=== PATIENT | male | born 1985 | race Caucasian/White ===

== ENCOUNTER 2016-04-11 13:12 | Emergency (ER) | payer OTHER ==
[~2016-04-11] VITALS: Ht 193 cm; Wt 120.6 kg
[~2016-04-11 13:12] MED LIST: ALBUAER19 INH; DICY10CA55 PO; LVMIPUC SC; METFTAB PO; NRN100 PO; TRC145 PO
[2016-04-11 13:18] VITALS: TEMP 37.1; Ht 193 cm; Wt 120.6 kg
[2016-04-11 14:15] VITALS: BP 141/96; PULSE 90; O2SAT 96
[2016-04-11] MEDS ORDERED: CLIN300C2 PO (14:17)
[2016-04-11] MEDS ORDERED: HYDR-5688 PO (14:18)
--- NOTE | 2016-04-11 14:19 | EMERGENCY ROOM VISIT NOTE ---
ED Visit Note First contact with patient: 13:33 CHIEF COMPLAINT: Toothache HISTORY OF PRESENT ILLNESS: This 30-year-old male patient presented to the emergency department ambulatory complaining of pain in the right side of his jaw for the past 4-5 days. The patient reports that he has had a constant, sharp pain in his right lower jaw for the past 4-5 days. The pain does not radiate anywhere. He does see a dentist, but has not seen one for several months. He has been taking Tylenol for the pain without relief. He rates the discomfort a 7/10. The pain is worse with talking or chewing. He denies any facial swelling, fever or drainage from the mouth. REVIEW OF SYSTEMS: A 6 system review of systems was completed with positives and pertinent negatives listed in the HPI. ALLERGIES: Penicillins MEDICATIONS: See med list PMH: Diabetes, asthma SOCIAL HISTORY: The patient lives locally with his significant other. He is a smoker. Denies alcohol use. PHYSICAL EXAM: Vitals are noted on the nurse's note and reviewed by myself. Vital signs stable. Temperature 37.1C orally. GENERAL: This is a 30-year-old male, in no acute distress, nondiaphoretic, well-developed well-nourished. Mouth: There is tenderness to palpation over the right lower jaw. The right lower back molar tooth is very carious. The gums are minimally swollen surrounding the tooth. The remainder of the pharynx and tonsils are without erythema, edema, or exudate. The airway is patent. There is no facial swelling , cervical or submandibular lymphadenopathy. The patient appears uncomfortable and in pain. The patient has overall poor dental hygiene. EARS: External auditory canals clear, tympanic membranes pearly miller without erythema or effusion bilaterally. ED COURSE: The patient was evaluated as above. He presents complaining of right lower jaw pain. The patient does have a dental carry an area which may be the cause of his pain. He will be placed on a course of clindamycin in case this is a dental source. The patient was given a short course of pain medication and instructed to follow-up closely with his primary care provider and dentist. He verbalized understanding of this assessment and treatment plan was discharged home in good condition. The [place] prescription drug monitoring program was queried and no red flags were identified. DIAGNOSIS: Odontalgia Problem List Medical Problems: (1) Bipolar 1 disorder Status: Chronic (2) DM2 (diabetes mellitus, type 2) Status: Chronic (3) GERD (gastroesophageal reflux disease) Status: Chronic (4) HLD (hyperlipidemia) Status: Chronic (5) HTN (hypertension) Status: Chronic (6) IBS (irritable bowel syndrome) Status: Chronic (7) PTSD (post-traumatic stress disorder) Status: Chronic Surgical Problems: (1) H/O colonoscopy Status: Chronic (2) H/O esophagogastroduodenoscopy Status: Chronic Current/Historical Medications Scheduled Bupropion Hcl (Wellbutrin Xl), 1 TAB PO DAILY Clindamycin Hcl (Cleocin), 300 MG PO QID Fenofibrate (Fenofibrate), 145 MG PO QAM Gabapentin (Neurontin), 300 MG PO HS Glipizide (Glucotrol), 10 MG PO DAILY Insulin Glargine (Lantus), 25 UNITS SC QAM Metformin Ext Rel (Glucophage Ext Rel), 1 TAB PO UD Omeprazole (Prilosec), 40 MG PO DAILY Quetiapine Fumarate (Seroquel), 1 TAB PO HS Scheduled PRN Albuterol Inhaler (Ventolin Inhaler), 2 PUFFS INH QID PRN for SOB/Wheezing Clonazepam (Klonopin), 1 TAB PO DAILY PRN for Anxiety Hydrocodone/Acetaminophen 5MG/325MG ([place] 5MG/325MG), 1-2 TABLET PO Q4H PRN for Pain Allergies Coded Allergies: Penicillins (Verified Allergy, Unknown, Rash, 04/11/16) Vital Signs Date Time Temp Pulse Resp B/P Pulse Ox O2 Delivery O2 Flow Rate FiO2 04/11/16 14:15 90 18 141/96 96 Room Air 04/11/16 13:18 37.1 86 18 146/89 98 Room Air Departure Information Impression Primary Impression: Pain in lower jaw Dispostion Home / Self-Care Condition GOOD Prescriptions Hydrocodone/Acetaminophen 5MG/325MG ([place] 5MG/325MG) Tab 1-2 TABLET PO Q4H Y for Pain, #15 TAB For Initial Treatment Prov: Cande Hahn PA-C 04/11/16 Clindamycin Hcl (CLEOCIN) 300 Mg Cap 300 MG PO QID for 7 Days, #28 CAP Prov: Cande Hahn PA-C 04/11/16 Referrals Nikolai Ralph M.D.([facility]) (PCP) Patient Instructions A Signature Page, My [facility] Additional Instructions You have been treated in the Emergency Department for Dental/jaw Pain. You have been prescribed [place] to be used for pain control. This is a narcotic medication. You cannot drive or consume alcohol while on this medicine. This medicine should only be used for pain that cannot be controlled with over-the- counter pain medicines. You were prescribed Clindamycin to be taken as prescribed. This is an antibiotic. All antibiotics have the potential to cause diarrhea. Stop this medication and contact a medical provider if you were to develop any significant adverse side effects including: wheezing, shortness of breath, passing out, vomiting, or a diffuse rash. Always take antibiotics as directed and COMPLETE the ENTIRE course regardless of the improvement of your symptoms. For pain control, you can use the following [id number] medicines (if >12 yo): - Regular strength (325mg/tab) Tylenol (acetaminophen) 2 tabs every 4-6 hours as needed. Do not exceed 12 tablets in a 24 hour period. Avoid taking more than 4 grams (4000 mg) of Tylenol per day. This includes any other sources of acetaminophen you may take on a regular basis. - Regular strength (200 mg/tab) Advil (ibuprofen) 1-2 tabs every 4-6 hours as needed. Do not exceed a dose of 3200 mg per day. Refrain from smoking cigarettes or using chewing tobacco until you have been evaluated by your dentist. Keeping beverages lukewarm and consuming soft foods can decrease your pain. Warm compresses over the affected area may offer some relief. You MUST seek evaluation of your dental pain by a dentist following your visit to the Emergency Department. The Emergency Department is not capable of treating dental issues long-term. You should call your dentist as soon as possible to make an appointment for evaluation of your dental pain. Return to the emergency department if you develop the following symptoms despite treatment course outlined above: fever, intractable pain, increased redness, swelling, or purulent discharge.
[2016-09-03] MEDS ORDERED: INSDGI SQ (13:33)
[2016-09-03] MEDS ORDERED: GABA-113 PO (13:33)
[2016-09-03] MEDS ORDERED: GLIP10TA9 PO (15:45)
[2016-09-03] MEDS ORDERED: SRQ/200 PO (16:18)
[2016-09-03] MEDS ORDERED: CLON1TAB3 PO (16:18)
[2016-09-03] MEDS ORDERED: OMEP20CA9 PO (16:18)
[2016-09-03] MEDS ORDERED: BUPRTAB51 PO (16:18)
== END 2016-04-11 14:29 | disposition home or self-care (01) ==
LOC: C.EDB 13:17 → C.EDD 14:29
DX: R68.84 Jaw pain (principal); J45.909 Unspecified asthma, uncomplicated; E11.9 Type 2 diabetes mellitus without complications; F17.200 Nicotine dependence, unspecified, uncomplicated; K02.9 Dental caries, unspecified; E78.5 Hyperlipidemia, unspecified; K58.9 Irritable bowel syndrome, unspecified; F31.9 Bipolar disorder, unspecified; I10 Essential (primary) hypertension; Z79.4 Long term (current) use of insulin; Z79.84 Long term (current) use of oral hypoglycemic drugs; Z79.899 Other long term (current) drug therapy

== ENCOUNTER 2016-09-03 22:09 | Emergency (ER) | payer OTHER ==
[~2016-09-03] VITALS: Ht 193 cm; Wt 118.3 kg
[~2016-09-03 22:09] MED LIST changes: +BUPRTAB51 PO; +CLON1TAB3 PO; -DICY10CA55 PO; +GABA-113 PO; +GLIP10TA9 PO; +HYDR-5688 PO; +INSDGI SQ; -LVMIPUC SC; -NRN100 PO; +OMEP20CA9 PO; +SRQ/200 PO
[2016-09-03 22:10] VITALS: TEMP 36.7; Ht 193 cm; Wt 118.3 kg
[2016-09-03] MEDS ORDERED: TRAMADOL HCL 50 MG HOME PACK PO ONE (22:45)
--- NOTE | 2016-09-03 23:03 | EMERGENCY ROOM VISIT NOTE ---
History First contact with patient: 22:18 Chief Complaint: BACK PAIN Stated Complaint: LF SHOULDER & LOWER BACK PAIN History of Present Illness The patient is a 31 year old male who presents to the Emergency Room with complaints of left shoulder and neck pain. The patient states that he woke this morning with pain radiating down his left shoulder into the upper back. He denies any recent injury or heavy lifting. He has been taking Tylenol and applying icy hot without relief. He rates the discomfort a 7/10 and states it is worse with movement. He does report a history of a bulging disc in the neck and states this feels similar. At that time, the patient was treated with a steroid which worked very well. He denies any numbness or weakness in the arm. He denies any fevers or headaches. Review of Systems A complete 6 point review of systems was reviewed with the patient with pertinent positives and negatives as per history of present illness. All else were negative. Past Medical/Surgical History Medical Problems: (1) JOEY (acute kidney injury) (2) Bipolar 1 disorder (3) DM2 (diabetes mellitus, type 2) (4) GERD (gastroesophageal reflux disease) (5) HLD (hyperlipidemia) (6) HTN (hypertension) (7) Hyperglycemia (8) IBS (irritable bowel syndrome) (9) PTSD (post-traumatic stress disorder) Surgical Problems: (1) H/O colonoscopy (2) H/O esophagogastroduodenoscopy (3) History of upper and lower endoscopy Family History FH: cancer FH: diabetes mellitus FH: heart disease FH: hypertension FH: lung disease Social History Smoking Status: Current Every Day Smoker Alcohol Use: none Marital Status: single Housing Status: lives with family, lives with significant other Occupation Status: unemployed Current/Historical Medications Scheduled Bupropion Hcl (Wellbutrin Xl), 1 TAB PO DAILY Fenofibrate (Tricor ), 145 MG PO DAILY Gabapentin (Neurontin), 300 MG PO HS Glipizide (Glucotrol), 10 MG PO DAILY Insulin Glargine (Lantus), 25 UNITS SC QAM Menthol-Camphor (Liniments) (Icy Hot Advanced Relief 16-11 %), 1 APPLN TOP PRN Metformin Hcl (Glucophage Ext Rel), 1,000 MG PO DAILY Methylprednisolone (Medrol Dosepak), 0 PO DAILY Omeprazole (Prilosec), 40 MG PO DAILY Quetiapine Fumarate (Seroquel), 1 TAB PO HS Tramadol Hcl (Ultram), 50 MG PO Q4H Scheduled PRN Albuterol Hfa (Ventolin Hfa), 2 PUFFS INH QID PRN for SOB/Wheezing Clonazepam (Klonopin), 1 TAB PO DAILY PRN for Anxiety Allergies Coded Allergies: Penicillins (Verified Allergy, Unknown, Rash, 09/03/16) Physical Exam Vital Signs Date Time Temp Pulse Resp B/P Pulse Ox O2 Delivery O2 Flow Rate FiO2 09/03/16 23:20 100 16 147/90 95 Room Air 09/03/16 22:10 36.7 115 20 156/93 97 Room Air Physical Exam VITALS: Vitals are noted on the nurse's note and reviewed by myself. Vital signs stable. GENERAL: This is a 31-year-old male, in no acute distress, nondiaphoretic, well- developed well-nourished. SKIN: The skin was without rashes. HEAD: Normocephalic atraumatic. EARS: External auditory canals clear, tympanic membranes pearly miller without erythema or effusion bilaterally. EYES: Pupils equal round and reactive to light and accommodation. Conjunctivae without injection, sclerae without icterus. Extraocular movements intact. MOUTH: Mucous membranes moist. Tonsils are not enlarged. Pharynx without erythema or exudate. NECK: Supple without nuchal rigidity. No lymphadenopathy. HEART: Regular rate and rhythm without murmurs gallops or rubs. LUNGS: Clear to auscultation bilaterally without wheezes, rales or rhonchi. MUSCULOSKELETAL: There is tenderness of the left paraspinous muscles and left trapezius muscles. Full range of motion of the left upper extremity and neck. Sales Applications Engineer strength 5/5 bilaterally in upper extremity spray strength 5/5 throughout. NEURO: Patient was alert and oriented to person place and time. Normal sensation to light and sharp touch. Medical Decision & Procedures Medications Administered Medications (Trade) Dose Ordered Sig/Tho Route Start Time Stop Time Status Last Admin Dose Admin Tramadol HCl (Ultram Home Pack) 1 homepack UD ONCE PO 09/03/16 22:45 09/03/16 22:46 DC 09/03/16 23:12 1 HOMEPACK Medical Decision The patient was evaluated as above. He has been seen here previously for cervical radiculopathy and states that the steroids he was treated with worked very well. His symptoms today are consistent with left-sided cervical radiculopathy. There is no numbness or weakness. I do not feel that imaging is necessary at this time. The patient will be placed on a short course of steroids and tramadol for pain. He was instructed to return to his primary care provider for recheck or come here sooner for any worsening symptoms. He verbalized understanding of my assessment and treatment plan and was discharged home in good condition. [place] Drug Monitoring Program Search Results: patient reviewed within database, no issues identified Impression Primary Impression: Cervical radiculopathy Departure Information Dispostion Home / Self-Care Condition GOOD Prescriptions Methylprednisolone (MEDROL DOSEPAK) 4 Mg Se 0 PO DAILY, #1 PKT Prov: Cande Hahn PA-C 09/03/16 Tramadol Hcl (ULTRAM) 50 Mg Tab 50 MG PO Q4H for Pain, #15 TAB For Initial Treatment Prov: Cande Hahn PA-C 09/03/16 Referrals Nikolai Ralph M.D. ([facility]) (PCP) Patient Instructions [facility] Additional Instructions You have been prescribed a Medrol Dosepak. This is a steroid which will help decrease your inflammation. Take the medicine as prescribed. Take the ENTIRE 6 day course of the steroids. Tramadol as needed for pain. This medication may make you drowsy. You should not drive or drink alcohol taking this medication. For pain control, you can use the following [id number] medicines (if >12 yo): - Regular strength (325mg/tab) Tylenol (acetaminophen) 2 tabs every 4-6 hours as needed. Do not exceed 12 tablets in a 24 hour period. Avoid taking more than 4 grams (4000 mg) of Tylenol per day. This includes any other sources of acetaminophen you may take on a regular basis. - Regular strength (200 mg/tab) Advil (ibuprofen) 1-2 tabs every 4-6 hours as needed. Do not exceed a dose of 3200 mg per day. Apply a heating pad to the area of pain. Follow-up with your primary care provider this week. Return to the emergency department with any worsening or new/concerning symptoms.
[2016-09-03] MEDS ORDERED: METF1TAB53 PO (23:04)
[2016-09-03] MEDS ORDERED: VNTHFA/IN INH (23:04)
[2016-09-03] MEDS ORDERED: MENT1CRE TOP (23:04)
[2016-09-03] MEDS ORDERED: FENO145T26 PO (23:04)
[2016-09-03] MEDS ORDERED: METH4PAK PO (23:08)
[2016-09-03] MEDS ORDERED: TRAM-453 PO (23:08)
[2016-09-03 23:20] VITALS: BP 147/90; PULSE 100; O2SAT 95
== END 2016-09-03 23:23 | disposition home or self-care (01) ==
LOC: C.EDB 22:10 → C.EDC 23:23
DX: M54.12 Radiculopathy, cervical region (principal); E11.9 Type 2 diabetes mellitus without complications; E78.5 Hyperlipidemia, unspecified; F31.9 Bipolar disorder, unspecified; I10 Essential (primary) hypertension; K21.9 Gastro-esophageal reflux disease without esophagitis; Z79.84 Long term (current) use of oral hypoglycemic drugs; Z79.4 Long term (current) use of insulin; Z79.899 Other long term (current) drug therapy

== ENCOUNTER 2017-03-05 18:28 | Emergency (ER) | payer BC, OTHER ==
[~2017-03-05] VITALS: Ht 193 cm; Wt 114.9 kg
[~2017-03-05 18:28] MED LIST changes: -ALBUAER19 INH; +FENO145T26 PO; -HYDR-5688 PO; +MENT1CRE TOP; +METF1TAB53 PO; -METFTAB PO; -TRC145 PO; +VNTHFA/IN INH
[2017-03-05 18:50] VITALS: TEMP 36.8; Ht 193 cm; Wt 114.9 kg
[2017-03-05 19:51] LABS: BASO % 0.5 %; BASO ABS # 0.06 K/uL (0-0.2); COMPLETE YES; EOS % 2.6 %; HEMATOCRIT 41.6 % (42-52); IG% 0.3 %; LYMPH % 36.6 %; LYMPH ABS # 4.24 K/uL (1.2-3.4); MEAN CELL VOLUME 88.5 fL (80-100); MEAN CORPUSCULAR HEMOGLOBIN 31.9 pg (25-34); MEAN CORPUSCULAR HGB CONC 36.1 g/dl (32-36); MEAN PLATELET VOLUME 8.6 fL (7.4-10.4); MONO % 8.2 %; NEUT % 51.8 %; PLATELET COUNT 318 K/uL (130-400); WHITE BLOOD COUNT 11.58 K/uL (4.8-10.8)
[2017-03-05 19:55] LABS: URINE APPEARANCE CLEAR (CLEAR); URINE BILIRUBIN NEG (NEG); URINE COLOR YELLOW; URINE NITRITE NEG (NEG); URINE SPECIFIC GRAVITY 1.038 (1.000-1.030); UROBILINOGEN NEG (NEG); ZZUR CULT IF INDIC CLEAN CATCH NO
[2017-03-05 19:58] LABS: MANUAL MICROSCOPIC REQUIRED? NO; REVIEW REQ? NO
[2017-03-05] MEDS ORDERED: SODIUM CHLORIDE 0.9% 1000ML 1,000 ML IV STA (20:19)
[2017-03-05 20:43] LABS: ALKALINE PHOSPHATASE 118 U/L (45-117); ALT/SGPT 28 U/L (12-78); BLOOD UREA NITROGEN 12 mg/dl (7-18); BUN/CREATININE RATIO 12.7 (10-20); CARBON DIOXIDE 23 mmol/L (21-32); CHLORIDE 101 mmol/L (98-107); CREATININE 0.98 mg/dl (0.60-1.40); GLUCOSE 268 mg/dl (70-99); SODIUM 134 mmol/L (136-145)
--- NOTE | 2017-03-05 21:10 | DIAGNOSTIC IMAGING REPORT ---
ABD/PELVIS WITHOUT FOR STONE CLINICAL HISTORY: 31 years-old Male presenting with bilateral flank pain. TECHNIQUE: Multidetector CT of the abdomen and pelvis was performed without the use of intravenous contrast. IV contrast: None. A dose lowering technique was used consistent with the principles of ALARA (as low as reasonably achievable). COMPARISON: None. CT DOSE (mGy.cm): The estimated cumulative dose is 1771.73 mGy.cm. FINDINGS: Vendor Analyst topogram: Unremarkable. Lung bases: Extensive dependent changes likely atelectasis. Normal heart size. No pericardial or pleural effusion. Liver: Normal morphology. Density consistent with hepatic steatosis. Fatty sparing noted in the gallbladder fossa. Biliary: No gross biliary ductal dilatation allowing for noncontrast technique. Normal gallbladder. Pancreas: Normal noncontrast appearance. Spleen: Normal noncontrast appearance. Adrenal glands: Normal noncontrast appearance. Kidneys and ureters: Punctate nonobstructing calculus noted in the interpolar region of the left kidney (series 3 image 202). Nonobstructing punctate calculus in the interpolar region of the right kidney (series 3 image 200). Kidneys otherwise normal in appearance. No hydronephrosis. Normal ureters. Bladder: Normal noncontrast appearance. Pelvic organs: Prostate and seminal vesicles normal. Bowel: Normal appendix. No bowel obstruction. Nonspecific intramural fat deposition in the terminal ileum. No perienteric inflammatory change. Peritoneal cavity: No free fluid or intraperitoneal gas. Lymph nodes: No gross lymphadenopathy allowing for noncontrast technique. Few prominent scattered mesenteric lymph nodes, likely reactive. Vasculature: Normal noncontrast appearance. Left pelvic phlebolith noted. Abdominal wall: Small fat-containing umbilical hernia. Musculoskeletal: Normal. IMPRESSION: 1. Bilateral nephrolithiasis. No hydronephrosis. 2. Nonspecific intramural fat deposition within the terminal ileum. The skin be seen in the setting of chronic inflammation among other etiologies. 3. Hepatic steatosis. Correlate with liver function tests to exclude steatohepatitis as a cause for abdominal pain. Electronically signed by: Saran Rouse M.D. 03/05/2017 9:09 PM Dictated Date/Time: 03/05/2017 8:59 PM
[2017-03-05 21:41] LABS: AST/SGOT 14 U/L (15-37)
[2017-03-05] MEDS ORDERED: CIPROFLOXACIN 500MG HOME PACK PO ONE (22:15)
[2017-03-05] MEDS ORDERED: CIPR-255 PO (22:15)
[2017-03-05 22:30] VITALS: BP 134/72; PULSE 88; O2SAT 98
--- NOTE | 2017-03-06 01:44 | EMERGENCY ROOM VISIT NOTE ---
History Report prepared by Maggie: Georgia Roberto Under the Supervision of: Dr. Huey Art M.D. First contact with patient: 19:09 Chief Complaint: FLANK PAIN Stated Complaint: KIDNEY PAIN History of Present Illness The patient is a 31 year old male who presents to the Emergency Room with complaints of constant flank pain beginning a week ago. The patient reports the pain is on both sides of his back. He rates his pain as a 7/10. He notes never having pain like this before. The patient reports that last year he had an episode where his blood sugar level was 798 which caused him to have kidney problems. He reports his sugar was so high because he did not know he was diabetic. He states his sugar levels have been regulated since. He notes urinating more frequently and a darkened color to his urine. He also notes dysuria. The patient has a history of asthma and reports using his inhaler more recently. The patient has family history of kidney stones. Pt denies LOC, headache, fevers, chills, diaphoresis, visual changes, neck pain, chest pain, breathing difficulties, nausea, vomiting, abdominal pain, melena, hematochezia, numbness, weakness, lymphadenopathy, rash, or other complaints. Source of History: patient Onset: a week ago Position: other (flank) Symptom Intensity: 7/10 Timing: constant Associated Symptoms: + urinary symptoms Review of Systems See HPI for pertinent positives and negatives. A total of ten systems were reviewed and were otherwise negative. Past Medical & Surgical Medical Problems: (1) JOEY (acute kidney injury) (2) Bipolar 1 disorder (3) DM2 (diabetes mellitus, type 2) (4) GERD (gastroesophageal reflux disease) (5) HLD (hyperlipidemia) (6) HTN (hypertension) (7) Hyperglycemia (8) IBS (irritable bowel syndrome) (9) PTSD (post-traumatic stress disorder) Surgical Problems: (1) H/O colonoscopy (2) H/O esophagogastroduodenoscopy (3) History of upper and lower endoscopy Family History FH: cancer FH: diabetes mellitus FH: heart disease FH: hypertension FH: lung disease Kidney stone Social History Smoking Status: Current Every Day Smoker Alcohol Use: none Marital Status: single Housing Status: lives with family, lives with significant other Occupation Status: unemployed Current/Historical Medications Scheduled Bupropion Hcl (Wellbutrin Xl), 300 MG PO DAILY Ciprofloxacin Hcl (Cipro), 500 MG PO BID Fenofibrate (Tricor ), 145 MG PO DAILY Gabapentin (Neurontin), 300 MG PO HS Glipizide (Glucotrol), 10 MG PO DAILY Insulin Glargine (Lantus), 25 UNITS SQ QAM Menthol-Camphor (Liniments) (Icy Hot Advanced Relief 16-11 %), 1 APPLN TOP PRN Metformin Hcl (Glucophage Ext Rel), 1,000 MG PO DAILY Omeprazole (Prilosec), 40 MG PO DAILY Quetiapine Fumarate (Seroquel), 200 MG PO HS Scheduled PRN Albuterol Hfa (Ventolin Hfa), 2 PUFFS INH QID PRN for SOB/Wheezing Clonazepam (Klonopin), 1 MG PO DAILY PRN for Anxiety Allergies Coded Allergies: Penicillins (Verified Allergy, Unknown, Rash, 09/03/16) Physical Exam Vital Signs Date Time Temp Pulse Resp B/P (MAP) Pulse Ox O2 Delivery O2 Flow Rate FiO2 03/05/17 22:30 88 16 134/72 98 03/05/17 21:46 72 16 140/72 98 Room Air 03/05/17 20:41 93 16 146/87 98 Room Air 03/05/17 18:50 36.8 111 18 152/93 99 Room Air Physical Exam GENERAL: Awake, alert, well-appearing, in no distress HENT: Normocephalic, atraumatic. Oropharynx unremarkable. EYES: Normal conjunctiva. Sclera non-icteric. NECK: Supple. No nuchal rigidity. FROM. No JVD. RESPIRATORY: Clear to auscultation. CARDIAC: Borderline tachycardic rate, normal rhythm. Extremities warm and well perfused. Pulses equal. ABDOMEN: Soft, non-distended. No tenderness to palpation. No rebound or guarding. No masses. RECTAL: Deferred. MUSCULOSKELETAL: Chest examination reveals no tenderness. The back is symmetrical on inspection without obvious abnormality. Bilateral CVA tenderness to palpation. No joint edema. LOWER EXTREMITIES: Calves are equal size bilaterally and non-tender. No edema. No discoloration. NEURO: Normal sensorium. No sensory or motor deficits noted. SKIN: No rash or jaundice noted. Medical Decision & Procedures ER Provider Diagnostic Interpretation: Radiology results as stated below per my review and radiologist interpretation: ABD/PELVIS WITHOUT FOR STONE FINDINGS: Tomato Paste Maker topogram: Unremarkable. Lung bases: Extensive dependent changes likely atelectasis. Normal heart size. No pericardial or pleural effusion. Liver: Normal morphology. Density consistent with hepatic steatosis. Fatty sparing noted in the gallbladder fossa. Biliary: No gross biliary ductal dilatation allowing for noncontrast technique. Normal gallbladder. Pancreas: Normal noncontrast appearance. Spleen: Normal noncontrast appearance. Adrenal glands: Normal noncontrast appearance. Kidneys and ureters: Punctate nonobstructing calculus noted in the interpolar region of the left kidney (series 3 image 202). Nonobstructing punctate calculus in the interpolar region of the right kidney (series 3 image 200). Kidneys otherwise normal in appearance. No hydronephrosis. Normal ureters. Bladder: Normal noncontrast appearance. Pelvic organs: Prostate and seminal vesicles normal. Bowel: Normal appendix. No bowel obstruction. Nonspecific intramural fat deposition in the terminal ileum. No perienteric inflammatory change. Peritoneal cavity: No free fluid or intraperitoneal gas. Lymph nodes: No gross lymphadenopathy allowing for noncontrast technique. Few prominent scattered mesenteric lymph nodes, likely reactive. Vasculature: Normal noncontrast appearance. Left pelvic phlebolith noted. Abdominal wall: Small fat-containing umbilical hernia. Musculoskeletal: Normal. IMPRESSION: 1. Bilateral nephrolithiasis. No hydronephrosis. 2. Nonspecific intramural fat deposition within the terminal ileum. The skin be seen in the setting of chronic inflammation among other etiologies. 3. Hepatic steatosis. Correlate with liver function tests to exclude steatohepatitis as a cause for abdominal pain. Electronically signed by: Saran Rouse M.D. Laboratory Results 03/05/17 19:41 Red Blood Count 4.70, Mean Corpuscular Volume 88.5, Mean Corpuscular Hemoglobin 31.9, Mean Corpuscular Hemoglobin Concent 36.1, Mean Platelet Volume 8.6, Neutrophils (%) (Auto) 51.8, Lymphocytes (%) (Auto) 36.6, Monocytes (%) (Auto) 8.2, Eosinophils (%) (Auto) 2.6, Basophils (%) (Auto) 0.5, Neutrophils # (Auto) 5.99, Lymphocytes # (Auto) 4.24, Monocytes # (Auto) 0.95, Eosinophils # (Auto) 0.30, Basophils # (Auto) 0.06 03/05/17 19:41 03/05/17 20:54 Test 03/05/17 19:41 03/05/17 20:54 White Blood Count 11.58 K/uL (4.8-10.8) Red Blood Count 4.70 M/uL (4.7-6.1) Hemoglobin 15.0 g/dL (14.0-18.0) Hematocrit 41.6 % (42-52) Mean Corpuscular Volume 88.5 fL (80-100) Mean Corpuscular Hemoglobin 31.9 pg (25-34) Mean Corpuscular Hemoglobin Concent 36.1 g/dl (32-36) Platelet Count 318 K/uL (130-400) Mean Platelet Volume 8.6 fL (7.4-10.4) Neutrophils (%) (Auto) 51.8 % Lymphocytes (%) (Auto) 36.6 % Monocytes (%) (Auto) 8.2 % Eosinophils (%) (Auto) 2.6 % Basophils (%) (Auto) 0.5 % Neutrophils # (Auto) 5.99 K/uL (1.4-6.5) Lymphocytes # (Auto) 4.24 K/uL (1.2-3.4) Monocytes # (Auto) 0.95 K/uL (0.11-0.59) Eosinophils # (Auto) 0.30 K/uL (0-0.5) Basophils # (Auto) 0.06 K/uL (0-0.2) RDW Standard Deviation 42.1 fL (36.4-46.3) RDW Coefficient of Variation 13.0 % (11.5-14.5) Immature Granulocyte % (Auto) 0.3 % Immature Granulocyte # (Auto) 0.04 K/uL (0.00-0.02) Urine Color YELLOW Urine Appearance CLEAR (CLEAR) Urine pH 5.0 (4.5-7.5) Urine Specific [place] 1.038 (1.000-1.030) Urine Protein NEG (NEG) Urine Glucose (UA) 3+ (NEG) Urine Ketones NEG (NEG) Urine Occult Blood NEG (NEG) Urine Nitrite NEG (NEG) Urine Bilirubin NEG (NEG) Urine Urobilinogen NEG (NEG) Urine Leukocyte Esterase NEG (NEG) Anion Gap 10.0 mmol/L (3-11) Est Creatinine Clear Calc Drug Dose 151.4 ml/min Estimated GFR () 118.6 Estimated GFR (Non- 102.3 BUN/Creatinine Ratio 12.7 (10-20) Calcium Level 9.0 mg/dl (8.5-10.1) Total Bilirubin 0.3 mg/dl (0.2-1) Alanine Aminotransferase (ALT/SGPT) 28 U/L (12-78) Alkaline Phosphatase 118 U/L (45-117) Total Protein 7.5 gm/dl (6.4-8.2) Albumin 4.0 gm/dl (3.4-5.0) Lipase 168 U/L (73-393) Direct Bilirubin mg/dl (0-0.2) Aspartate Amino Transf (AST/SGOT) 14 U/L (15-37) Chemistry Specimen Hemolysis Laboratory results reviewed by me Medications Administered Medications (Trade) Dose Ordered Sig/Tho Route Start Time Stop Time Status Last Admin Dose Admin Sodium Chloride 1,000 ml @ 999 mls/hr Q1H1M STAT IV 03/05/17 20:19 03/05/17 21:19 DC 03/05/17 20:19 999 MLS/HR Ciprofloxacin (Cipro 500MG Home Pack) 1 homepack UD ONCE PO 03/05/17 22:15 03/05/17 22:16 DC 03/05/17 22:15 1 HOMEPACK ED Course 2011: The patient was evaluated in room C3. A complete history and physical exam was performed. 2019: Ordered Sodium Chloride 1000 ml @ 999 mls/hr IV. 2203: I updated the patient on his test results he is resting comfortably. 2215: Ordered Ciprofloxacin 1 homepack PO. 2222: I reevaluated the patient. Discussed results and discharge instructions: He verbalized understanding and agreement. The patient is ready for discharge. Medical Decision Triage Nursing notes reviewed. The patient's presentation and history were concerning for flank pain and urinary symptoms. Etiologies such as renal colic, appendicitis, diverticulitis, mesenteric ischemia, aortic pathology, infections, inflammatory bowel disease, PUD, biliary pathology, UTI, as well as others were entertained. The patient was evaluated. Clinically he was doing well. He does have a slight leukocytosis. He was hydrated. Urinalysis was rather unremarkable given his symptomatology. The patient's chemistry panel was unremarkable as well. Normal renal function. CT imaging was performed and findings noted as above. The patient has bilateral nephrolithiasis. Radiology raise questions about his terminal ileum however the patient does not have any GI symptoms per se. The accommodation of the flank pain, leukocytosis, and urinary symptoms raise concerns I discussed treatment with antibiotic pending culture and follow- up. The patient was in agreement. He was given Cipro. The patient will follow -up closely with his primary physician. He will call this week. She worsens in any way he will be back. He'll monitor his sugar closely. I gave my usual and customary discussion regarding this issue. By the evaluation outlined above other emergent etiologies such as those listed in the differential, as well as others, were deemed relatively unlikely. The patient was educated about the findings as listed above. All questions were answered and the patient was pleased with the treatment. Return instructions were outlined and the patient was discharged in stable condition. The patient was referred to his PCP for follow-up for a recheck of the current condition. Medication Reconcilliation Current Medication List: was personally reviewed by me Blood Pressure Screening Patient's blood pressure: Elevated blood pressure Blood pressure disposition: Referred to PCP Impression Primary Impression: Flank pain Additional Impressions: Dysuria Hyperglycemia Scribe Attestation The scribe's documentation has been prepared under my direction and personally reviewed by me in its entirety. I confirm that the note above accurately reflects all work, treatment, procedures, and medical decision making performed by me. Departure Information Dispostion Home / Self-Care Prescriptions Ciprofloxacin Hcl (CIPRO) 500 Mg Tab 500 MG PO BID, #14 TAB Prov: Huey Art MD 03/05/17 Referrals Nikolai Ralph M.D.([facility]) (PCP) Forms HOME CARE DOCUMENTATION FORM, IMPORTANT VISIT INFORMATION Patient Instructions My [facility] Additional Instructions Ciprofloxacin 500mg: Take one pill twice daily for 7 days for your infection. All antibiotics can cause diarrhea. If this occurs and you feel worse or it does not resolve in 1-2 days follow up with your doctor or return to the Emergency Department as this could be signs of serious underlying problems. Any medication can cause an allergic reaction or complication, stop the pills immediately and return to the ER for rash, hives, breathing difficulties, tendon pain, tendon injury, or swelling. Ibuprofen(Motrin, Advil) may be used for fever or pain. Use 600mg every six hours as needed. Take with food. Avoid using more than 2400mg in a 24 hour period. Do not use 2400mg per day for more than three consecutive days without physician direction. Prolonged inappropriate use can lead to stomach upset or ulcers. This medication can be taken if you need to drive, work, or perform activities which may be dangerous when taking narcotic pain medication. (AND/OR) Acetaminophen(Tylenol) may be used for fever or pain. Use 1000mg every six hours as needed. Avoid using more than 4000mg in a 24 hour period. This medication can be taken if you need to drive, work, or perform activities which may be dangerous when taking narcotic pain medication. Rest and avoid strenuous activity until your symptoms resolve. Drink plenty of fluids. Return to the ER for worsening abdominal or back pain, vomiting, fevers, passing out, or as needed. Follow up with Dr. Ralph's office this week. Problem Qualifiers
== END 2017-03-05 22:31 | disposition home or self-care (01) ==
LOC: C.EDB 18:29 → C.EDC 22:31
DX: R10.9 Unspecified abdominal pain (principal); R30.0 Dysuria; E11.65 Type 2 diabetes mellitus with hyperglycemia; N20.0 Calculus of kidney; D72.829 Elevated white blood cell count, unspecified; J45.909 Unspecified asthma, uncomplicated; F31.9 Bipolar disorder, unspecified; K21.9 Gastro-esophageal reflux disease without esophagitis; E78.5 Hyperlipidemia, unspecified; I10 Essential (primary) hypertension; K58.9 Irritable bowel syndrome, unspecified; F17.200 Nicotine dependence, unspecified, uncomplicated; Z79.4 Long term (current) use of insulin; Z79.84 Long term (current) use of oral hypoglycemic drugs; Z84.1 Family history of disorders of kidney and ureter; Z80.9 Family history of malignant neoplasm, unspecified; Z83.3 Family history of diabetes mellitus; Z82.49 Family history of ischemic heart disease and other diseases of the circulatory system

== ENCOUNTER 2017-04-05 21:01 | Emergency (ER) | payer BC ==
[~2017-04-05] VITALS: Ht 193 cm; Wt 109.6 kg
[~2017-04-05 21:01] MED LIST changes: +CIPR-255 PO; -CLON1TAB3 PO; +CLON1TAB4 PO
[2017-04-05 21:09] VITALS: TEMP 36.9; Ht 193 cm; Wt 109.6 kg
[2017-04-05] MEDS ORDERED: ACETAMINOPHEN 500 MG TAB PO STA (21:41)
[2017-04-05] MEDS ORDERED: LIDOCAINE/EPINEPHRINE 1% 20 ML VIAL INFIL ONE (21:45)
--- NOTE | 2017-04-05 21:59 | EMERGENCY ROOM VISIT NOTE ---
ED Visit Note First contact with patient: 21:13 CHIEF COMPLAINT: Infection on the right shoulder HISTORY OF PRESENT ILLNESS: This is a 31-year-old male who presents to the emergency department after noticed a hard tender area on his posterior right shoulder area approximately 2 weeks ago, but has been getting worse over the past few days. He states that he was poking and squeezing at it, and did get some drainage from the area, and it has been more painful and irritated since that time. It is slowly getting larger, more painful and tender. No fever, chills, or loss of appetite. There was no known injury to the area preceding the infection. He denies any headaches, neck pain, back pain, chest pain, shortness of breath, abdominal pain, nausea or vomiting, rash. He denies any history of abscesses in the past. He is not diabetic. He has not been on any recent antibiotics or had this seen by anyone else in the past. REVIEW OF SYSTEMS: A complete 10 point review of systems was reviewed with the patient with pertinent positives and negatives as per history of present illness. All else were negative. PMH: History of asthma SOCIAL HISTORY: Patient lives at home. Positive tobacco use. PHYSICAL EXAM: Vital Signs: Reviewed Nurse's notes. CONSTITUTIONAL: Pleasant and cooperative. No acute distress. Well appearing and well nourished. HEENT: Normocephalic, atraumatic. Pupils equal, round and reactive to light, EOMI. TMs normal. Pharynx normal. Moist mucous membranes NECK: Supple, full active range of motion without discomfort. RESPIRATORY: Clear to auscultation bilaterally with no wheezing, crackles, rhonchi or stridor. Equal expansion bilaterally. CARDIOVASCULAR: Regular rate and rhythm with no murmurs, rubs or gallops. Normal peripheral perfusion. No edema. GASTROINTESTINAL: Soft, nontender, nondistended. No palpable masses or HSM. Bowel sounds present in all quadrants. MUSCULOSKELETAL: Full range of motion of all joints without discomfort. INTEGUMENTARY: There is an indurated area on the posterior right upper back/ shoulder area which measures about 4 cm in diameter. It is fluctuant but there is no pointing or drainage. There is a small zone of inflammation around it buy no lymphangitis. Tender to palpation. Not hot to touch or erythematous. NEUROLOGIC: Alert and oriented X 4 with normal affect. Cranial nerves II-XII grossly intact. No focal neurologic deficits noted. EMERGENCY DEPARTMENT COURSE: I examined the patient. Differential diagnosis includes abscess, cellulitis, sebaceous cyst, MRSA, among others. Risks and benefits of the procedure were explained to the patient and he verbalized understanding. I obtained verbal consent from the patient prior to the procedure being performed. Area was prepped in the usual sterile fashion. The wound was cleansed using saline and Betadine, and was then anesthetized using 1 % buffered lidocaine with epinephrine. Using sterile technique, the abscess cavity was incised with a #11 scalpel blade. Large amount of bloody and purulent material drained and more was expressed. A wound culture was collected from deep inside the wound and sent to the lab for analysis. The abscess cavity was probed with hemostats and blunt dissection of the abscess, with increased purulent drainage expressed. The wound was flushed several times with sterile saline, then a bacitracin soaked gauze drain was inserted into the wound cavity. An occlusive dressing was applied over the wound. The patient tolerated the procedure well with no known complications. The patient was instructed on wound care and plan for follow up in 2 days for packing removal and reassessment, as well as urgent return precautions should his symptoms worsen in the interim, he verbalized understanding. The patient was discharged home in stable condition and ambulatory. Blood pressure screening: The patient was found to have an elevated blood pressure, this was felt to be situational due to pain. Problem List Medical Problems: (1) Bipolar 1 disorder Status: Chronic (2) DM2 (diabetes mellitus, type 2) Status: Chronic (3) GERD (gastroesophageal reflux disease) Status: Chronic (4) HLD (hyperlipidemia) Status: Chronic (5) HTN (hypertension) Status: Chronic (6) IBS (irritable bowel syndrome) Status: Chronic (7) PTSD (post-traumatic stress disorder) Status: Chronic Surgical Problems: (1) H/O colonoscopy Status: Chronic (2) H/O esophagogastroduodenoscopy Status: Chronic Current/Historical Medications Scheduled Bupropion Hcl (Wellbutrin Xl), 300 MG PO DAILY Ciprofloxacin Hcl (Cipro), 500 MG PO BID Gabapentin (Neurontin), 300 MG PO HS Menthol-Camphor (Liniments) (Icy Hot Advanced Relief 16-11 %), 1 APPLN TOP PRN Metformin Hcl (Glucophage Ext Rel), 1,000 MG PO DAILY Omeprazole (Prilosec), 40 MG PO DAILY Quetiapine Fumarate (Seroquel), 200 MG PO HS Scheduled PRN Albuterol Hfa (Ventolin Hfa), 2 PUFFS INH QID PRN for SOB/Wheezing Clonazepam (Klonopin), 1 MG PO DAILY PRN for Anxiety Allergies Coded Allergies: Penicillins (Verified Allergy, Unknown, Rash, 04/05/17) Vital Signs Date Time Temp Pulse Resp B/P (MAP) Pulse Ox O2 Delivery O2 Flow Rate FiO2 04/05/17 23:09 99 16 158/95 99 04/05/17 22:57 99 16 158/95 94 Room Air 04/05/17 21:09 36.9 101 18 140/87 96 Room Air Medications Administered Medications (Trade) Dose Ordered Sig/Tho Route Start Time Stop Time Status Last Admin Dose Admin Acetaminophen (Tylenol Tab) 1,000 mg NOW STAT PO 04/05/17 21:41 04/05/17 21:47 DC 04/05/17 22:16 1,000 MG Departure Information Impression Primary Impression: Sebaceous cyst Dispostion Home / Self-Care Condition GOOD Referrals Nikolai Ralph M.D.([facility]) (PCP) Ad Mcgee D.O. Patient Instructions ED Cyst Sebaceous Infec Cecilia, My [facility] Additional Instructions You were seen in the Emergency Department for Incision and Drainage of the cyst on your back. You will NEED to return to the Emergency Department to have the packing removed/changed in 48 hours. This packing is NOT dissolvable and WILL need to be removed by a health care provider. Try to leave the packing in place until you return to the Emergency Department. Bring the extra packing material with you when you come to be re-evaluated in 2 days. Proper wound care is essential for adequate wound healing and infection prevention. You can shower and clean the wound with soap and water. Do not scour over the wound. Pat dry with a towel. Do not submerse the wound (i.e. bathe or dish wash) until it has fully healed shut. You can use an antibiotic ointment with a dressing over the wound for the next 3-4 days. After this time you may leave the wound dry and open to the air. If crust develops over the wound you can use a Q-tip to apply a 1:1 peroxide:water solution to clean the wound. As with any laceration you may have received nerve damage to the surrounding tissues. This damage may or may not be permanent. For pain control, you can use the following [id number] medicines (if >12 yo): - Extra strength (500mg/tab) Tylenol (acetaminophen) 1-2 tabs every 6-8 hours as needed. Do not exceed 6 tablets in a 24 hour period. Avoid taking more than 3 grams (3000 mg) of Tylenol per day. This includes any other sources of acetaminophen you may take on a regular basis. - Regular strength (200 mg/tab) Advil (ibuprofen) 2-3 tabs every 4-6 hours as needed. Do not exceed a dose of 2400 mg per day. You should follow-up with your PCP in the next week for further evaluation of your wound. You may consider following up with the general surgeon if this abscess recurs. Look for signs of infection of the wound including: increased pain, swelling, foul discharge, streaking, or fevers/chills. If any of these are noticed you should return to the Emergency Department for further assessment and treatment. Work Instructions Return To Work: 2 days
[2017-04-05 23:09] VITALS: BP 158/95; PULSE 99; O2SAT 99
== END 2017-04-05 23:09 | disposition home or self-care (01) ==
LOC: C.EDB 21:02 → C.EDD 23:09
DX: L72.3 Sebaceous cyst (principal); J45.909 Unspecified asthma, uncomplicated; F17.200 Nicotine dependence, unspecified, uncomplicated; F32.9 Major depressive disorder, single episode, unspecified; E11.9 Type 2 diabetes mellitus without complications; K21.9 Gastro-esophageal reflux disease without esophagitis; E78.5 Hyperlipidemia, unspecified; I10 Essential (primary) hypertension; K58.9 Irritable bowel syndrome, unspecified; F43.10 Post-traumatic stress disorder, unspecified

== ENCOUNTER 2017-04-07 21:30 | Emergency (ER) | payer BC ==
[~2017-04-07] VITALS: Ht 193 cm; Wt 102.5 kg
[~2017-04-07 21:30] MED LIST changes: -FENO145T26 PO; -GLIP10TA9 PO; -INSDGI SQ
[2017-04-07 21:33] VITALS: BP 132/85; PULSE 108; TEMP 36.6; O2SAT 98; Ht 193 cm; Wt 102.5 kg
--- NOTE | 2017-04-08 05:03 | EMERGENCY ROOM VISIT NOTE ---
ED Visit Note First contact with patient: 21:35 CHIEF COMPLAINT: Wound check HISTORY OF PRESENT ILLNESS: This 31-year-old patient presents to the emergency department with family for a recheck of right upper back. Patient had I&D of an abscess done 2 days ago. Previous care outlined has been followed without difficulty. REVIEW OF SYSTEMS: A 6 system review of systems was completed with positives and pertinent negatives listed in the HPI. ALLERGIES: Penicillin MEDICATIONS: Reviewed PMH: Unchanged from previous visit. Medical Problems: (1) Bipolar 1 disorder Status: Chronic (2) DM2 (diabetes mellitus, type 2) Status: Chronic (3) GERD (gastroesophageal reflux disease) Status: Chronic (4) HLD (hyperlipidemia) Status: Chronic (5) HTN (hypertension) Status: Chronic (6) IBS (irritable bowel syndrome) Status: Chronic (7) PTSD (post-traumatic stress disorder) Status: Chronic Surgical Problems: (1) H/O colonoscopy Status: Chronic (2) H/O esophagogastroduodenoscopy Status: Chronic PHYSICAL EXAM: Vital Signs reviewed, see Nurse's notes. Patient is afebrile, vital signs stable. GENERAL: Pleasant male, awake, alert, well appearing, no acute distress SKIN: Inspection of the right upper back reveals a healing abscess. MUSCULOSKELETAL: No erythema, edema or atrophy to extremities NEURO: No sensory or motor deficits noted. EMERGENCY DEPARTMENT COURSE AND DECISION MAKING: I examined the patient. The patient presented with an isolated wound as above. The wound was repacked with iodoform packing under antiseptic and sterile technique. Patient tolerated this well. He was advised to follow-up family care in 2-3 days or here in the ER for wound check and repacking or sooner for worsening signs or symptoms or as needed. The wound is healing well. Wound culture is pending and patient had no signs or symptoms of infection on exam. No active drainage. ER Treatment: Wound was repacked Discharge instructions reviewed. Discharged in stable condition. DIAGNOSIS: Healing back abscess with wound repacking TREATMENT PLAN: As below Problem List Medical Problems: (1) Bipolar 1 disorder Status: Chronic (2) DM2 (diabetes mellitus, type 2) Status: Chronic (3) GERD (gastroesophageal reflux disease) Status: Chronic (4) HLD (hyperlipidemia) Status: Chronic (5) HTN (hypertension) Status: Chronic (6) IBS (irritable bowel syndrome) Status: Chronic (7) PTSD (post-traumatic stress disorder) Status: Chronic Surgical Problems: (1) H/O colonoscopy Status: Chronic (2) H/O esophagogastroduodenoscopy Status: Chronic Current/Historical Medications Scheduled Bupropion Hcl (Wellbutrin Xl), 300 MG PO DAILY Gabapentin (Neurontin), 300 MG PO HS Menthol-Camphor (Liniments) (Icy Hot Advanced Relief 16-11 %), 1 APPLN TOP PRN Metformin Hcl (Glucophage Ext Rel), 1,000 MG PO DAILY Omeprazole (Prilosec), 40 MG PO DAILY Quetiapine Fumarate (Seroquel), 200 MG PO HS Scheduled PRN Albuterol Hfa (Ventolin Hfa), 2 PUFFS INH QID PRN for SOB/Wheezing Clonazepam (Klonopin), 1 MG PO DAILY PRN for Anxiety Allergies Coded Allergies: Penicillins (Verified Allergy, Unknown, Rash, 04/05/17) Vital Signs Date Time Temp Pulse Resp B/P (MAP) Pulse Ox O2 Delivery O2 Flow Rate FiO2 04/07/17 21:33 36.6 108 20 132/85 98 Room Air Departure Information Impression Primary Impression: Change or removal of wound packing Additional Impression: Encounter for wound re-check Dispostion Home / Self-Care Condition GOOD Forms WORK / SCHOOL INSTRUCTIONS, HOME CARE DOCUMENTATION FORM, Days off work : 1 Work Instructions, IMPORTANT VISIT INFORMATION Patient Instructions My [facility] [employer] Additional Instructions Continued daily dressing changes. Leave inner wick in place. Wound recheck in 2-3 days. Bring your packing material with you. DO NOT OPEN IT. Return to ER sooner for signs of infection, fevers, redness, worsening signs or symptoms or as needed. Problem Qualifiers
== END 2017-04-07 21:51 | disposition home or self-care (01) ==
LOC: C.EDB 21:31 → C.EDA 21:51
DX: Z48.00 Encounter for change or removal of nonsurgical wound dressing (principal); F31.2 Bipolar disorder, current episode manic severe with psychotic features; E11.9 Type 2 diabetes mellitus without complications; K21.9 Gastro-esophageal reflux disease without esophagitis; E78.5 Hyperlipidemia, unspecified; I10 Essential (primary) hypertension; K58.9 Irritable bowel syndrome, unspecified; F43.10 Post-traumatic stress disorder, unspecified

== ENCOUNTER 2017-05-19 21:53 | Emergency (ER) | payer SELFPAY ==
[~2017-05-19] VITALS: Ht 193 cm; Wt 84.3 kg
[~2017-05-19 21:53] MED LIST changes: -CIPR-255 PO; +CLON1TAB3 PO; -CLON1TAB4 PO
[2017-05-19 22:01] VITALS: Ht 193 cm; Wt 84.3 kg
[2017-05-19] MEDS ORDERED: ALBUT/IPRATROP 3MG/0.5MG NEB 3 ML VIAL INH STA (22:16)
[2017-05-19] MEDS ORDERED: DEXAMETHASONE **PF** INJ 10 MG/ML VIAL IV ONE (22:30)
[2017-05-19 22:31] VITALS: O2SAT 92
[2017-05-19 23:27] LABS: INFLUENZA B ANTIGEN Neg for Influ B (NEG)
[2017-05-19] MEDS ORDERED: SODIUM CHLORIDE 0.9% 1000ML 2,000 ML IV STA (23:57)
[2017-05-20] MEDS ORDERED: INSULIN GLARGINE SC SCH
[2017-05-20 00:04] LABS: ALBUMIN 4.3 gm/dl (3.4-5.0); ALKALINE PHOSPHATASE 172 U/L (45-117); ALT/SGPT 34 U/L (12-78); AST/SGOT 14 U/L (15-37); BLOOD UREA NITROGEN 10 mg/dl (7-18); CALCIUM 9.1 mg/dl (8.5-10.1); CARBON DIOXIDE 22 mmol/L (21-32); CREATININE 1.17 mg/dl (0.60-1.40); GLUCOSE 511 mg/dl (70-99); POTASSIUM 4.2 mmol/L (3.5-5.1); SODIUM 128 mmol/L (136-145); TOTAL PROTEIN 8.6 gm/dl (6.4-8.2)
[2017-05-20] MEDS ORDERED: ALBUT/IPRATROP 3MG/0.5MG NEB 3 ML VIAL INH ONE (00:30)
[2017-05-20 00:31] LABS: HEMATOCRIT 44.7 % (42-52); HEMOGLOBIN 17.1 g/dL (14.0-18.0); MEAN CELL VOLUME 86.6 fL (80-100); MEAN CORPUSCULAR HEMOGLOBIN 33.1 pg (25-34); MEAN CORPUSCULAR HGB CONC 38.3 g/dl (32-36); PLATELET COUNT 382 K/uL (130-400); WHITE BLOOD COUNT 15.08 K/uL (4.8-10.8)
[2017-05-20 00:34] VITALS: TEMP 36.9
[2017-05-20 00:37] VITALS: PULSE 103; O2SAT 90
[2017-05-20 00:38] LABS: BASO % 1.2 %; BASO ABS # 0.18 K/uL (0-0.2); EOS % 4.5 %; EOS ABS # 0.68 K/uL (0-0.5); IG# 0.12 K/uL (0.00-0.02); LYMPH % 30.8 %; LYMPH ABS # 4.65 K/uL (1.2-3.4); MONO % 9.5 %; MONO ABS # 1.43 K/uL (0.11-0.59); NEUT % 53.2 %; NEUT ABS # 8.02 K/uL (1.4-6.5)
[2017-05-20 01:34] VITALS: BP 142/85; O2SAT 96
[2017-05-20] MEDS ORDERED: NovoLIN-R INSULIN PER UNIT CHARGE IV STA (02:00)
[2017-05-20 02:04] VITALS: PULSE 99
[2017-05-20] MEDS ORDERED: ALBUTEROL HFA 8 GM INHALER INH STA (03:26)
[2017-05-20] MEDS ORDERED: AZITHROMYCIN 250 MG TAB PO STA (03:27)
[2017-05-20 04:23] LABS: CALCIUM 7.9 mg/dl (8.5-10.1); CREATININE 0.9 mg/dl (0.60-1.40); POTASSIUM 4.3 mmol/L (3.5-5.1)
--- NOTE | 2017-05-20 04:32 | EMERGENCY ROOM VISIT NOTE ---
History First contact with patient: 22:12 Chief Complaint: RESPIRATORY PROBLEMS Stated Complaint: ASTHMA,COPD History of Present Illness The patient is a 32 year old male who presents to the Emergency Room with complaints of cough, congestion, dyspnea and high blood sugars for the past several days. Patient lost his insurance and has not been able to afford his insulin for over a month. His blood sugars have been reading high on his glucometer. He ran out of his asthma and COPD meds. Patient denies chest pain , fevers, abdominal pain, vomiting, diarrhea. Patient continues to smoke. Patient states he has unintentionally lost weight this past 2 months. He states he has been depressed and eating less. He had a colonoscopy a few years ago that was negative. Patient complaint of productive cough of yellow-green sputum. No hemoptysis. Review of Systems An 10 system review of systems was completed with positives and pertinent negatives listed in the HPI. Past Medical/Surgical History Medical Problems: (1) JOEY (acute kidney injury) (2) Bipolar 1 disorder (3) DM2 (diabetes mellitus, type 2) (4) GERD (gastroesophageal reflux disease) (5) HLD (hyperlipidemia) (6) HTN (hypertension) (7) Hyperglycemia (8) IBS (irritable bowel syndrome) (9) PTSD (post-traumatic stress disorder) Surgical Problems: (1) H/O colonoscopy (2) H/O esophagogastroduodenoscopy (3) History of upper and lower endoscopy Family History FH: cancer FH: diabetes mellitus FH: heart disease FH: hypertension FH: lung disease Kidney stone Social History Smoking Status: Current Every Day Smoker Alcohol Use: none Marital Status: single Housing Status: lives with family, lives with significant other Occupation Status: unemployed Current/Historical Medications Scheduled Azithromycin (Zithromax), 250 MG PO DAILY Bupropion Hcl (Wellbutrin Xl), 300 MG PO DAILY Gabapentin (Neurontin), 300 MG PO HS Insulin Glargine (Lantus), 25 UNITS SC QPM Menthol-Camphor (Liniments) (Icy Hot Advanced Relief 16-11 %), 1 APPLN TOP PRN Metformin Hcl (Glucophage Ext Rel), 1,000 MG PO DAILY Metformin Hcl (Glucophage), 1 TAB PO BID Omeprazole (Prilosec), 40 MG PO DAILY Prednisone (Prednisone), 50 MG PO DAILY Quetiapine Fumarate (Seroquel), 200 MG PO HS Scheduled PRN Albuterol Hfa (Ventolin Hfa), 2 PUFFS INH QID PRN for SOB/Wheezing Clonazepam (Klonopin), 1 MG PO DAILY PRN for Anxiety Physical Exam Vital Signs Date Time Temp Pulse Resp B/P (MAP) Pulse Ox O2 Delivery O2 Flow Rate FiO2 05/20/17 02:04 99 05/20/17 01:34 105 18 142/85 96 Nebulizer 05/20/17 01:30 106 21 05/20/17 01:00 97 24 05/20/17 00:37 103 16 90 Room Air 05/20/17 00:34 36.9 107 20 141/77 92 Room Air 05/19/17 22:36 116 05/19/17 22:31 92 Room Air 05/19/17 22:30 Room Air 92 05/19/17 22:01 37.0 121 24 145/87 95 Room Air Physical Exam PHYSICAL EXAM: Vital Signs: Reviewed Nurse's notes. Oxygen saturation was 92% on room air. GENERAL: Pleasant male, Alert, oriented and coherent. The patient is barely able to speak in complete sentences. NECK: Supple, non-tender. CHEST : Symmetrical expansion. + retractions + accessory muscle use. HEART: Regular rate and normal heart sounds, no murmur, gallop or rub. LUNGS: Breath sounds equal but significantly diminished in intensity on both sides. Bilateral wheezes heard but no rales or pleuritic rub. SKIN: The skin was without rashes, erythema, edema, or bruising. There is no tenting of the skin. Capillary reflex less than 2 seconds. HEAD: Normocephalic atraumatic. EARS: External auditory canals clear, tympanic membranes pearly miller without erythema or effusion bilaterally. EYES: Pupils equal round and reactive to light and accommodation. Conjunctivae without injection, sclerae without icterus. Extraocular movements intact. NOSE: Patent, turbinates without inflammation or discharge. No sinus tenderness. MOUTH: Mucous membranes mildly dry. Pharynx without erythema or exudate. Uvula midline. Airway patent. Tongue does not deviate. ABDOMEN: Positive bowel sounds x 4. Normal tympanic percussion. Soft, nontender, without masses or organomegaly. Daly sign negative. No guarding or rebound tenderness. MUSCULOSKELETAL: No muscle atrophy, erythema, or edema noted. NEURO: Patient was alert and oriented to person place and time. Normal sensation to light and sharp touch. No focal neurological deficits. Medical Decision & Procedures Laboratory Results 05/19/17 22:32 Red Blood Count 5.16, Mean Corpuscular Volume 86.6, Mean Corpuscular Hemoglobin 33.1, Mean Corpuscular Hemoglobin Concent 38.3, Neutrophils (%) (Auto) 53.2, Lymphocytes (%) (Auto) 30.8, Monocytes (%) (Auto) 9.5, Eosinophils (%) (Auto) 4.5, Basophils (%) (Auto) 1.2, Neutrophils # (Auto) 8.02, Lymphocytes # (Auto) 4.65, Monocytes # (Auto) 1.43, Eosinophils # (Auto) 0.68, Basophils # (Auto) 0.18 05/20/17 03:26 Test 05/19/17 00:00 05/19/17 22:32 05/19/17 22:47 05/20/17 03:21 Influenza Type A Antigen Neg for Influ A (NEG) Influenza Type B Antigen Neg for Influ B (NEG) White Blood Count 15.08 K/uL (4.8-10.8) Red Blood Count 5.16 M/uL (4.7-6.1) Hemoglobin 17.1 g/dL (14.0-18.0) Hematocrit 44.7 % (42-52) Mean Corpuscular Volume 86.6 fL (80-100) Mean Corpuscular Hemoglobin 33.1 pg (25-34) Mean Corpuscular Hemoglobin Concent 38.3 g/dl (32-36) Platelet Count 382 K/uL (130-400) Neutrophils (%) (Auto) 53.2 % Lymphocytes (%) (Auto) 30.8 % Monocytes (%) (Auto) 9.5 % Eosinophils (%) (Auto) 4.5 % Basophils (%) (Auto) 1.2 % Neutrophils # (Auto) 8.02 K/uL (1.4-6.5) Lymphocytes # (Auto) 4.65 K/uL (1.2-3.4) Monocytes # (Auto) 1.43 K/uL (0.11-0.59) Eosinophils # (Auto) 0.68 K/uL (0-0.5) Basophils # (Auto) 0.18 K/uL (0-0.2) Immature Granulocyte % (Auto) 0.8 % Immature Granulocyte # (Auto) 0.12 K/uL (0.00-0.02) Polychromasia 1+ Venous Blood pH 7.39 (7.36-7.41) Venous Blood Partial Pressure CO2 47 mmHg (38.0-50.0) Venous Blood Partial Pressure O2 21 mmHg Venous Blood HCO3 27 mmol/L Venous Blood Oxygen Saturation < 60.0 % Venous Blood Base Excess 1.5 mEq/L Magnesium Level 2.3 mg/dl (1.8-2.4) Total Bilirubin 0.5 mg/dl (0.2-1) Direct Bilirubin 0.1 mg/dl (0-0.2) Aspartate Amino Transf (AST/SGOT) 14 U/L (15-37) Alanine Aminotransferase (ALT/SGPT) 34 U/L (12-78) Alkaline Phosphatase 172 U/L (45-117) Lactate Dehydrogenase 222 U/L (87-241) Troponin I < 0.015 ng/ml (0-0.045) Total Protein 8.6 gm/dl (6.4-8.2) Albumin 4.3 gm/dl (3.4-5.0) Thyroid Stimulating Hormone (TSH) 2.780 uIu/ml (0.300-4.500) Bedside Troponin I < 0.030 ng/ml (0-0.045) Bedside Glucose 409 mg/dl (70-99) Test 05/20/17 03:26 Anion Gap 16.0 mmol/L (3-11) Est Creatinine Clear Calc Drug Dose 140.5 ml/min Estimated GFR () 130.5 Estimated GFR (Non- 112.6 BUN/Creatinine Ratio 11.1 (10-20) Calcium Level 7.9 mg/dl (8.5-10.1) Beta-Hydroxybutyric Acid 29.79 mg/dL (0.2-2.81) Chemistry Specimen Hemolysis Medications Administered Medications (Trade) Dose Ordered Sig/Tho Route Start Time Stop Time Status Last Admin Dose Admin Albuterol/ Ipratropium (Duoneb) 3 ml NOW STAT INH 05/19/17 22:16 05/19/17 22:19 DC 05/19/17 22:37 3 ML Dexamethasone Sodium Phosphate (Dexamethasone Inj Pf) 10 mg NOW ONCE IV 05/19/17 22:30 05/19/17 22:31 DC 05/19/17 22:37 10 MG Sodium Chloride 2,000 ml @ 999 mls/hr Q2H1M STAT IV 05/19/17 23:57 05/20/17 01:57 DC 05/19/17 23:57 999 MLS/HR Albuterol/ Ipratropium (Duoneb) 12 ml ONE ONCE INH 05/20/17 00:30 05/20/17 00:31 DC 05/20/17 00:33 12 ML Insulin Human Regular (novoLIN-R U-100 PER UNIT) 10 units NOW STAT IV 05/20/17 02:00 05/20/17 02:01 DC 05/20/17 02:19 10 UNITS Albuterol (Ventolin Hfa Inhaler) 2 puffs ONE STAT INH 05/20/17 03:26 05/20/17 03:27 DC 05/20/17 03:26 2 PUFFS Azithromycin (Zithromax Tab) 500 mg NOW STAT PO 05/20/17 03:27 05/20/17 03:28 DC 05/20/17 03:27 500 MG ED Course Prior records/ancillary studies reviewed. Triage Nursing notes reviewed. Additional history obtained from the family. The patient's history was concerning for respiratory difficulties and high blood sugars. Differential diagnosis: Etiologies such as infections, reactive airway disease, glucose abnormalities, pneumonia, pneumothorax, COPD, CHF, cardiac ischemia, pulmonary embolism, musculoskeletal, gastrointestinal, as well as others were entertained. Physical examination: As above. ER treatment provided: IV fluids, nebulizer, steroids, insulin On reassessment the patient felt better. Diagnostic interpretation by me: The electrocardiogram was negative for acute ischemic or pathologic change. Normal sinus, normal intervals, poor baseline, no acute ST-T wave changes, rate of 111. Impression sinus tachycardia interpreted by myself The labs revealed hyperglycemia, normal pH. AG 20. Repeat BMP after 2 L of fluid and 10 units of insulin showed improved glucose and anion gap. Imaging studies: Chest x-ray with no acute consolidation, pneumothorax or free air per my interpretation Consultation: A consultation was placed with the [facility] hospitalist. Patient then refused admission. This appears to be consistent with diabetes with hyperglycemia with an anion gap with a normal pH and COPD exacerbation. Patient was strongly encouraged admission. Patient signed out AMA. He states he does not like hospitals and will not stay in the hospital for admission. Patient was informed he is at risk for sepsis, , kidney failure or any other worsening conditions. Nurse Brian was present for the AMA form signing. Case management went and gave the patient information on free access care and on family care doctors. Patient was strongly encouraged to take medications as directed and to take better control of his diabetes. He was strongly encouraged to quit smoking. He was informed that he return to the ER at any time for further evaluation and treatment and for possible admission. He verbalized understanding this and ambulated out of the ER with his girlfriend. By the evaluation outlined above emergent etiologies such as CHF, cardiac ischemia, pulmonary embolism, pneumothorax, musculoskeletal, as well as others were deemed relatively unlikely. Patient was informed to monitor his blood sugars as he was placed on prednisone for his COPD exacerbation. The pt informed about the findings as listed above. All questions were answered and pt pleased with the treatment. Return instructions were outlined and the patient left AMA in stable condition. Outpatient prescription management: Lantus, metformin, Zithromax, prednisone Referral: The patient was referred back to their primary care physician for follow-up in 2 to 3 days for a recheck of the current condition. Patient was informed he can return to the ER anytime for further evaluation and treatment. Case reviewed with my attending. Medical Decision As above Medication Reconcilliation Current Medication List: was personally reviewed by me Blood Pressure Screening Patient's blood pressure: Elevated blood pressure Blood pressure disposition: Referred to PCP Impression Primary Impression: Diabetes mellitus with hyperglycemia Additional Impression: COPD exacerbation Departure Information Dispostion Home / Self-Care Condition GOOD Prescriptions Azithromycin (Zithromax) 250 Mg Tab 250 MG PO DAILY for 4 Days, #4 TAB Prov: Erin Olson .KO 05/20/17 Prednisone (Prednisone) 50 Mg Tab 50 MG PO DAILY for 4 Days, #4 TAB Prov: Erin Olson PA-C 05/20/17 Metformin Hcl (GLUCOPHAGE) 1,000 Mg Tab 1 TAB PO BID for 30 Days, #60 TAB Prov: Erin Olson PA-C 05/20/17 Insulin Glargine (Lantus) 100 Unit/Ml Inj 25 UNITS SC QPM for 30 Days, #10 VIAL Prov: Erin Olson .KO 05/20/17 Referrals No Doctor, Assigned (PCP) Patient Instructions My [facility] Additional Instructions You are leaving AGAINST MEDICAL ADVICE. You are at risk for kidney failure, heart attack and/or . COPD/asthma: Albuterol Inhaler: Take 2 puffs four times daily for five days, then as needed. Prednisone 50mg: Once daily until the prescription is finished. It is best to take this earlier in the day as some patients note occasional difficulty falling asleep when taken in the late evening. Azithromycin(Zithromax) 250mg: Take one a day for 4 additional days. All antibiotics can cause diarrhea. If this occurs and you feel worse or it does not resolve in 1-2 days follow up with your doctor or return to the Emergency Department as this could be signs of serious underlying problems. Any medication can cause an allergic reaction, stop the pills immediately and return to the ER for rash, hives, breathing difficulties, or swelling. Acetaminophen(Tylenol) may be used for fever or pain. Use 1000mg every six hours as needed. Avoid using more than 3000mg in a 24 hour period. (AND/OR) Ibuprofen(Motrin, Advil) may be used for fever or pain. Use 600mg every six hours as needed. Take with food. Avoid using more than 2400mg in a 24 hour period. Do not use 2400mg per day for more than three consecutive days without physician direction. Prolonged inappropriate use can lead to stomach upset or ulcers. Rest and drink plenty of fluids. Avoid smoke/smoking, fumes, dust, or any triggers in the past that may have affected your breathing. Continue current medications. Return to the ER for chest pain, difficulty breathing, fevers, vomiting, worsening of your condition, or as needed. Follow up with your primary physician this week for a recheck of your current condition. Diabetes: Take your insulin and metformin as instructed. Monitor your blood sugar as you are placed on prednisone for your COPD flare. Return to the ER immediately for further evaluation and treatment, high blood sugars, lethargy, fevers, worsening signs or symptoms or as needed. Problem Qualifiers Primary Impression: Diabetes mellitus with hyperglycemia Diabetes mellitus type: type 2 Diabetes mellitus lobsterman insulin use: with lobsterman use Qualified Codes: E11.65 - Type 2 diabetes mellitus with hyperglycemia; Z79.4 - detention (current) use of insulin
[2017-05-20] MEDS ORDERED: METF1000 PO (04:35)
[2017-05-20] MEDS ORDERED: INSDGI SC (04:35)
[2017-05-20] MEDS ORDERED: PRED50TA PO (04:35)
[2017-05-20] MEDS ORDERED: AZIT250T PO (04:35)
--- NOTE | 2017-05-20 06:03 | DIAGNOSTIC IMAGING REPORT ---
CHEST 2 VIEWS ROUTINE CLINICAL HISTORY: cough.fever dyspnea COMPARISON STUDY: 02/01/2016 FINDINGS: Minimal infiltrative process right lung base. Lungs otherwise are clear. Minimal atelectasis left base. Diaphragms smooth. IMPRESSION: Minimal infiltrative process versus atelectasis right and to lesser extent left lung base. The above report was generated using voice recognition software. It may contain grammatical, syntax or spelling errors. Electronically signed by: Efraín Edouard M.D. 05/20/2017 6:02 AM Dictated Date/Time: 05/20/2017 6:01 AM
== END 2017-05-20 04:39 | disposition left against medical advice (07) ==
LOC: C.EDB 21:55
DX: E11.65 Type 2 diabetes mellitus with hyperglycemia (principal); J44.1 Chronic obstructive pulmonary disease with (acute) exacerbation; J45.909 Unspecified asthma, uncomplicated; F17.200 Nicotine dependence, unspecified, uncomplicated; F31.9 Bipolar disorder, unspecified; F43.10 Post-traumatic stress disorder, unspecified; I10 Essential (primary) hypertension; E78.5 Hyperlipidemia, unspecified; K21.9 Gastro-esophageal reflux disease without esophagitis; K58.9 Irritable bowel syndrome, unspecified; Z83.3 Family history of diabetes mellitus; Z82.49 Family history of ischemic heart disease and other diseases of the circulatory system; Z84.1 Family history of disorders of kidney and ureter; Z79.4 Long term (current) use of insulin; Z79.84 Long term (current) use of oral hypoglycemic drugs